=== PATIENT | female | born 2000 | race Caucasian/White ===

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

== ENCOUNTER 2018-08-27 23:34 | Emergency (ER) | payer BC ==
[~2018-08-27] VITALS: Ht 165.1 cm; Wt 97.0 kg
[~2018-08-27 23:34] MED LIST changes: +ALBU8.5H8 INH
[2018-08-27 23:49] VITALS: Ht 165.1 cm; Wt 97.0 kg
--- NOTE | 2018-08-28 06:29 | ERD ---
ER Documentation Chief Complaint Chief Complaint ring got stuck right 4th finger x 1 day HPI 17-year-old female, right-handed, presents to the emergency department, complaining of right finger pain and edema after sustaining direct trauma and been unable to remove a ring since yesterday. ROS All systems reviewed and are negative except as per history of present illness. Medications Home Meds Active Scripts Ibuprofen* (Motrin*) 400 Mg Tab, 400 MG PO Q6H PRN for PAIN AND OR ELEVATED TEMP, #20 TAB Prov:TRU SOLIS MD 08/28/18 Albuterol Sulfate* (Proair HFA*) 8.5 Gm Hfa.aer.ad, 2 PUFF INH Q4, #1 INHALER Prov:JACQUELINE COATES PA-C 08/03/17 Ibuprofen* (Motrin*) 600 Mg Tab, 600 MG PO Q6, #30 TAB Prov:JEFF BARRON 02/02/17 Acetaminophen* (Tylenol*) 325 Mg Tablet, 1 TAB PO Q8 PRN for PAIN AND OR ELEVATED TEMP, #20 TAB Prov:JACQUELINE COATES PA-C 10/14/16 Triamcinolone Acetonide (Triamcinolone Acetonide) 0.1% - 15 Gm Cream.gm., 1 APPLIC TOP BID, #1 TUB Prov:DAVID NEWMAN NP 07/21/16 Prednisone* (Prednisone*) 50 Mg Tablet, 50 MG PO DAILY for 5 Days, TAB Prov:DAVID NEWMAN NP 07/21/16 Diphenhydramine Hcl* (Benadryl*) 25 Mg Cap, 25 MG PO Q6, #30 CAP Prov:BRYSON,UZIEL 07/20/16 Acetaminophen* (Tylenol*) 325 Mg Tablet, 2 TAB PO Q6 PRN for PAIN AND OR ELEVATED TEMP, #20 TAB Prov:BRYSON,UZIEL 07/20/16 Acetaminophen* (Tylophen*) 500 Mg Capsule, 1 CAP PO Q6H PRN for PAIN AND OR ELEVATED TEMP, #20 CAP Prov:DAVID NEWMAN NP 06/05/16 Ibuprofen* (Motrin*) 600 Mg Tab, 600 MG PO Q6, #20 TAB Prov:DANITA GARZA NP 05/12/15 Reported Medications [Albuterol] No Conflict Check 09/15/09 Allergies Allergies: Coded Allergies: No Known Drug Allergy (Verified Allergy, Mild, 08/03/17) egg (Verified Allergy, Unknown, 08/28/18) kiwi (Verified Allergy, Unknown, 08/28/18) pineapple (Verified Allergy, Unknown, 08/28/18) PMhx/Soc Medical and Surgical Hx: pt denies Surgical Hx History of Surgery: No Anesthesia Reaction: No Hx Neurological Disorder: No Hx Respiratory Disorders: Yes (asthma) Hx Cardiac Disorders: No Hx Psychiatric Problems: No Hx Miscellaneous Medical Probl: No Hx Alcohol Use: No Hx Substance Use: No Hx Tobacco Use: No Smoking Status: Never smoker FmHx Family History: No diabetes, No coronary disease Physical Exam Vitals Vital Signs Date Temp Pulse Resp B/P (MAP) Pulse Ox O2 O2 Flow FiO2 Time Delivery Rate 08/28/18 97.9 61 17 119/65 98 Room Air 08:26 (83) 08/27/18 97.8 68 18 143/81 99 23:49 (101) Physical Exam Const: No acute distress Head: Atraumatic Eyes: Normal Conjunctiva ENT: Normal External Ears, Nose and Mouth. Neck: Full range of motion. No meningismus. Resp: Clear to auscultation bilaterally Cardio: Regular rate and rhythm, no murmurs Abd: Soft, non tender, non distended. Normal bowel sounds Skin: No petechiae or rashes Back: No midline or flank tenderness Ext: No cyanosis, or edema Neur: Awake and alert Psych: Normal Mood and Affect Results 24 hrs Current Medications Medications Dose Sig/Yadira Start Time Status Last (Trade) Ordered Route PRN Stop Time Admin Dose Reason Admin Mineral Oil 30 ml ONCE ONCE 08/28/18 DC (Mineral PO 06:30 08/28/18 Oil) 06:31 Procedures/MDM Differential diagnosis considered include but not limited are: sprain/strain, ligament injury, fracture, dislocation, low suspicion for acute infectious process. Soft compartments, neurovascular exam grossly intact. Physical examination and clinical presentation consistent with right fourth finger sprain with retained ring. During the ED course the ring was removed with a ring cutter.Results and clinical impression discussed with patient who agrees with management. The patient is stable to be treated outpatient and will be discharged home with recommendations for ice, rest and partial immobilization. NSAIDs 3 times daily for 5 days and close monitoring. The patient was instructed to follow up with the primary care provider in the next 48h. If symptoms persist, worsen or new symptoms develop, then patient candy gomezparisa return to the ED immediately. Instructions explained and given to patient with acknowledgment and demonstrated understanding. Disclaimer: Inadvertent spelling and grammatical errors are likely due to EHR/dictation software use and do not reflect on the overall quality of patient care. Also, please note that the electronic time recorded on this note does not necessarily reflect the actual time of the patient encounter. Departure Diagnosis: Primary Impression: Swelling of right ring finger Condition: Stable Additional Instructions: Thank you very much for allowing us to participate in your care. Your health and safety is our top priority at [facility]. Call your primary care doctor TOMORROW for an appointment during the next 2-4 days and bring all the information and medications prescribed. Have prescriptions filled and follow precisely the directions on the label. If the symptoms get worse and your provider is unavailable, return to the Emergency Department immediately. TRU SOLIS MD Aug 28, 2018 06:29
[2018-08-28] MEDS ORDERED: MINERAL OIL 30ML CUP PO ONE (06:30)
[2018-08-28] MEDS ORDERED: IBUP-1561 PO (08:19)
[2018-08-28 08:26] VITALS: BP 119/65; PULSE 61; RESP 17
== END 2018-08-28 08:27 | disposition home or self-care (01) ==
LOC: FTE 23:34
DX: M79.89 Other specified soft tissue disorders (principal); J45.909 Unspecified asthma, uncomplicated
CPT/HCPCS: 73130; Z7502; Z7610